=== PATIENT | female | born 1985 | race Two or more races ===

== ENCOUNTER 2019-11-22 22:42 | Emergency (ER) | payer OTHER ==
[~2019-11-22] VITALS: Ht 165.1 cm; Wt 86.2 kg
[2019-11-23] MEDS ORDERED: HEMATOGEN FORT1 EACH PO (03:23)
[2019-11-23] MEDS ORDERED: DOLOGESIC-DF 51 EACH PO (03:23)
== END 2019-11-23 03:58 | disposition home or self-care (01) ==
LOC: ER 22:42
DX: N93.8 Other specified abnormal uterine and vaginal bleeding (principal)